=== PATIENT | male | born 1945 | race Caucasian/White ===

== ENCOUNTER → 2016-06-04 | Outpatient (CLI) | payer MEDICARE, BC ==
--- NOTE | 2016-06-04 16:08 | RAD ---
Carotid ultrasound, 06/04/2016: History: Atherosclerotic disease Duplex evaluation of the carotid arteries in the neck was performed including grayscale, color-flow and spectral Doppler analysis. There are moderate scattered plaques in the common carotid arteries and at the carotid bifurcations. The plaques are partially calcified. The Doppler data obtained from the bifurcations reveals no significant focal velocity acceleration to suggest a hemodynamically significant carotid stenosis. The peak systolic velocity in both the right and left internal carotid arteries is 68 cm/s. Antegrade flow is present in both vertebral arteries in the neck. IMPRESSION: Moderate atherosclerotic plaquing at both carotid bifurcations with underlying luminal narrowing in the 0-50% diameter range bilaterally. Note: Stenosis calculations for CT, MRA and conventional angiography are based upon determination of the distal ICA diameter in accordance with the NASCET methodology. Stenosis calculations for Doppler studies are derived from validated velocity criteria which are known to correlate with NASCET methodology of determining stenosis.
== END | disposition home or self-care (01) ==
LOC: US 14:48
PROVIDERS: ATTEND General Practice
DX: I65.23 Occlusion and stenosis of bilateral carotid arteries (principal)
CPT/HCPCS: 93880

== ENCOUNTER 2019-07-01 15:09 | Emergency (ER) | payer MEDICARE, BC ==
[~2019-07-01] VITALS: Ht 170.2 cm; Wt 86.6 kg
[2019-07-01] MEDS ORDERED: LIDOCAINE 1% Multi-Dose 20 ML VIAL. IJ ONE (15:30)
--- NOTE | 2019-07-01 15:44 | PHYS DOC ---
Past History Past Medical History: Cancer, Diabetes, Hypertension, Vascular Disease Past Surgical History: Cancer Surgery Additional Smoking Information: 1-1.5 packs/day Alcohol Use: Rarely General Adult EDM: Chief Complaint: LACERATION/AVULSION HPI: HPI: Patient is a 73-year-old male with a history of diabetes and multiple skin cancers presents with a laceration to his right forearm. He states he did this while he was digging a postal. He went to pound the postal digger into the ground it slipped and he hit some metal opening up a laceration. He is unsure when his last tetanus shot was. [] Review of Systems: Review of Systems: Constitutional: Denies fever or chills Eyes: Denies change in visual acuity HENT: Denies nasal congestion or sore throat Respiratory: Denies cough or shortness of breath Cardiovascular: Denies chest pain or edema GI: Denies abdominal pain, nausea, vomiting, bloody stools or diarrhea : Denies dysuria Musculoskeletal: Denies back pain or joint pain Integument: Per HPI Neurologic: Denies headache, focal weakness or sensory changes Endocrine: Denies polyuria or polydipsia Lymphatic: Denies swollen glands Psychiatric: Denies depression or anxiety Heart Score: Risk Factors: Risk Factors: DM, Current or recent (<one month) smoker, HTN, HLP, family history of CAD, obesity. Risk Scores: Score 0 - 3: 2.5% MACE over next 6 weeks - Discharge Home Score 4 - 6: 20.3% MACE over next 6 weeks - Admit for Clinical Observation Score 7 - 10: 72.7% MACE over next 6 weeks - Early Invasive Strategies Current Medications: Current Meds: Current Medications Medications (Trade) Dose Ordered Sig/Ryan Start Time Stop Time Status Last Admin Dose Admin Lidocaine HCl 20 ml 1X ONCE 07/01/19 15:30 07/01/19 15:31 UNV 07/01/19 15:38 20 ML Tetanus/ Diphtheria Toxoids Adsorbed (Tenivac Vial) 0.5 ml ONCE ONCE 07/01/19 15:30 07/01/19 15:31 UNV Allergies: Allergies: Allergies Coded Allergies Type Severity Reaction Last Updated Verified No Known Drug Allergies 07/01/19 No Physical Exam: PE: Constitutional: Well developed, well nourished, no acute distress, non-toxic appearance. [] HENT: Normocephalic, atraumatic, bilateral external ears normal, oropharynx moist, no oral exudates, nose normal. [] Eyes: PERRLA, EOMI, conjunctiva normal, no discharge. [] Neck: Normal range of motion, no tenderness, supple, no stridor. [] Cardiovascular:Heart rate regular rhythm, no murmur [] Lungs & Thorax: Bilateral breath sounds clear to auscultation [] Abdomen: Bowel sounds normal, soft, no tenderness, no masses, no pulsatile mass es. [] Skin: There is a 6-1/2 cm laceration through the subcutaneous tissue on the right mid forearm. I inspected the wound for any foreign bodies in a bloodless field and none were found [] Back: No tenderness, no CVA tenderness. [] Extremities: No tenderness, no cyanosis, no clubbing, ROM intact, no edema. [] Neurologic: Alert and oriented X 3, normal motor function, normal sensory function, no focal deficits noted. [] Psychologic: Anxious. [] Current Patient Data: Vital Signs: Vital Signs Date Time Temp Pulse Resp B/P (MAP) Pulse Ox O2 Delivery O2 Flow Rate FiO2 /16/20 15:15 98.4 83 20 164/86 (112) 91 Room Air EKG: EKG: [] Radiology/Procedures: Radiology/Procedures: [] Course & Med Decision Making: Course & Med Decision Making Pertinent Labs and Imaging studies reviewed. (See chart for details) [Procedure: Laceration repair The wound was scrubbed with Betadine and again inspected for foreign bodies none of which were found. The wound itself was 6-1/2 cm. After anesthetizing the wound with 8 cc of 1% lidocaine without epinephrine 7 skin michael were placed with excellent approximation of the wound edges. Patient tolerated the pr ocedure well] Dragon Disclaimer: Dragon Disclaimer: This electronic medical record was generated, in whole or in part, using a voice recognition dictation system. Departure Departure: Impression: Primary Impression: Laceration of right forearm Qualified Codes: S51.811A - Laceration without foreign body of right forearm, initial encounter Disposition: 01 HOME/RESIDENCE PRIOR TO ADM Condition: STABLE Referrals: FLACO CEBALLOS DO (PCP) Patient Instructions: Laceration Care, Adult Additional Instructions: Michael out in 7 to 10 days. Watch for signs of infection. Return to the emergency department with any new or concerning symptoms VIRAJ SLADE DO July 01, 2019 15:44
[2019-07-01 15:52] VITALS: BP 120/58
[2019-07-01] MEDS ORDERED: TETANUS AND DIPHTHERIA TOX/PF 0.5 ML VIAL. VAX IM ONE (16:00)
== END 2019-07-01 16:10 | disposition home or self-care (01) ==
LOC: ER 15:09
DX: S51.811A Laceration without foreign body of right forearm, initial encounter (principal); E11.9 Type 2 diabetes mellitus without complications; I10 Essential (primary) hypertension; F17.200 Nicotine dependence, unspecified, uncomplicated; X58.XXXA Exposure to other specified factors, initial encounter; Y93.89 Activity, other specified; Y92.89 Other specified places as the place of occurrence of the external cause; Y99.8 Other external cause status
CPT/HCPCS: 12002; 90471; 90714; 99283

== ENCOUNTER → 2020-04-01 | Outpatient (CLI) | payer MEDICARE, BC ==
--- NOTE | 2020-04-01 14:21 | RAD ---
EXAM: CT Abdomen without IV contrast INDICATION: Reason: RIGHT FLANK PAIN / Spl. Instructions: / History: TECHNIQUE: Multi-detector row CT images were acquired from the lung bases through the abdomen without the use of IV contrast. Sagittal and coronal images were acquired from the transaxial data. All CT s cans performed at this facility utilize dose optimization techniques as appropriate to the exam, incl uding the following: Automated exposure control and adjustment of the mA and/or KV according to patie nt size (this includes techniques or standardized protocols for targeted exams where dose is indicati on/reason for exam). IV CONTRAST: Administered ORAL CONTRAST: Not administered COMPARISON: None currently available FINDINGS: LOWER CHEST: Unremarkable LIVER: Unremarkable BILIARY SYSTEM: Gallbladder is unremarkable. Bile ducts are not dilated. PANCREAS: There is subtle soft tissue stranding in the pancreatic head along the pancreaticoduodenal groove. No ductal dilation or fluid collection is apparent. SPLEEN: Unremarkable ADRENALS: Unremarkable KIDNEYS & URETERS: Mild bilateral perinephric soft tissue stranding is apparent. No radiopaque stone s or hydronephrosis is seen. Calcifications of the hilum of the bilateral kidneys are compatible with vascular calcifications. GASTROINTESTINAL: Scattered colonic diverticuli. No findings of bowel obstruction, perforation or acu te inflammation. Appendix is not included in the [id number]. MESENTERY/PERITONEUM/RETROPERITONEUM: Unremarkable VASCULAR: Patient has a 5.7 cm AP diameter infrarenal abdominal aortic aneurysm that is partially im aged in the [id number]. No periaortic soft tissue stranding suspicious for leak or rupture in the included field of view. LYMPH NODES: No adenopathy OSSEOUS & SOFT TISSUES: Unremarkable IMPRESSION: 1. Infrarenal abdominal aortic aneurysm measuring 5.7 cm of uncertain duration. No findings in the in cluded field of view of leak or rupture. 2. Soft tissue stranding around the pancreatic head is suggestive of mild acute pancreatitis. Correla te clinically. Discussed with Dr. Evan Floyd by telephone at 1:59 PM on 04/01/2020 Electronically signed by: Bear Ashraf MD (04/01/2020 2:18 PM) [id number]
== END ==
LOC: CT 09:55
PROVIDERS: ATTEND Internal Medicine
DX: I71.4 Abdominal aortic aneurysm, without rupture (principal)
CPT/HCPCS: 74150

== ENCOUNTER → 2020-05-08 | Outpatient (CLI) | payer MEDICARE, BC ==
[2020-05-08 11:20] LABS: HEMATOCRIT 58.7 % (39.0-53.0); HEMOGLOBIN 19.7 g/dL (13.0-17.5)
== END | disposition home or self-care (01) ==
LOC: LAB 10:55
PROVIDERS: ATTEND Internal Medicine
DX: D75.1 Secondary polycythemia (principal)
CPT/HCPCS: 36415; 85014; 85018; 99195